=== PATIENT | female | born 1970 | race Caucasian/White ===

== ENCOUNTER 2017-11-23 15:52 | Emergency (ER) | payer OTHER ==
[2017-11-23 16:20] VITALS: BP 141/92; PULSE 72; TEMP 97.6; BMI 28.3
[2017-11-23] MEDS ORDERED: ONDANSETRON 4 MG/2 ML VIAL IVPUSH STA (16:41)
[2017-11-23] MEDS ORDERED: SODIUM CHLORIDE 1,000 ML IV STA ×2 (16:41→18:29)
--- NOTE | 2017-11-23 16:41 | PDOC ---
History of Present Illness - General History Source: Patient Exam Limitations: No Limitations - History of Present Illness Initial Comments: 11/23/17 17:27 The patient is a 47 year old female with a significant past medical history of breast CA s/p left mastectomy, seizure disorder, and bipolar disorder who presents to the ED with complaints of nausea, vomiting, and abdominal pain for 3 days. The patient reports an onset of generalized abdominal pain radiating to her back on Friday. She also reports multiple episodes of nausea and vomiting. Patient states her mouth is very dry after vomiting. Upon arrival to the ED, patient is requesting pain medication and is moving all over the bed. Denies fever or chills. Denies chest pain or shortness of breath. Denies dysuria or change in urinary output. Denies any other symptoms. <Janiya Wyatt - Last Filed: 11/23/17 17:27> <Breanne Arambula - Last Filed: 11/24/17 01:23> - General Chief Complaint: Nausea/Vomiting Stated Complaint: Nausea/Vomiting Time Seen by Provider: 11/23/17 16:24 Past History <Janiya Wyatt - Last Filed: 11/23/17 17:27> - Past Medical History Asthma: Yes Cancer: Yes (lt breast) COPD: No Psychiatric Problems: Yes (bipolar depression anxiety) - Suicide/Smoking/Psychosocial Hx Smoking History: Unknown if ever smoked Have you smoked in the past 12 months: No Information on smoking cessation initiated: No Hx Alcohol Use: No Drug/Substance Use Hx: No Substance Use Type: None <Breanne Arambula - Last Filed: 11/24/17 01:23> - Past Medical History Allergies/Adverse Reactions: Allergies Allergy/AdvReac Type Severity Reaction Status Date / Time haloperidol [From Haldol] Allergy Verified 11/23/17 16:20 trazodone Allergy Verified 11/23/17 16:20 Home Medications: Ambulatory Orders Fluconazole [Diflucan] 150 mg PO ONCE #1 tablet 11/23/17 Ondansetron [Zofran *Odt*] 8 mg SL BID PRN #10 od.tablet 11/23/17 Review of Systems - Review of Systems Able to Perform ROS?: Yes Comments:: 11/23/17 17:28 CONSTITUTIONAL: Absent: fever, chills, diaphoresis, generalized weakness, malaise, loss of appetite HEENT: Absent: rhinorrhea, nasal congestion, throat pain, throat swelling, difficulty swallowing, mouth swelling, ear pain, eye pain, visual Changes CARDIOVASCULAR: Absent: chest pain, syncope, palpitations, irregular heart rate, lightheadedness , peripheral edema RESPIRATORY: Absent: cough, shortness of breath, dyspnea with exertion, orthopnea, wheezing, stridor, hemoptysis GASTROINTESTINAL: + abdominal pain, nausea, vomiting Absent: abdominal distension, diarrhea, constipation, melena, hematochezia GENITOURINARY: Absent: dysuria, frequency, urgency, hesitancy, hematuria, flank pain, genital pain MUSCULOSKELETAL: Absent: myalgia, arthralgia, joint swelling SKIN: Absent: rash, itching, pallor HEMATOLOGIC/IMMUNOLOGIC: Absent: easy bleeding, easy bruising, lymphadenopathy, frequent infections ENDOCRINE: Absent: unexplained weight gain, unexplained weight loss, heat intolerance, cold intolerance NEUROLOGIC: Absent: headache, focal weakness or paresthesias, dizziness, unsteady gait, seizure, mental status changes, bladder or bowel incontinence PSYCHIATRIC: Absent: anxiety, depression, suicidal or homicidal ideation, hallucinations. All Other Systems: Reviewed and Negative <Janiya Wyatt - Last Filed: 11/23/17 17:27> *Physical Exam - Vital Signs Last Vital Signs Temp Pulse Resp BP Pulse Ox 97.6 F 72 22 141/92 98 11/23/17 16:14 11/23/17 16:14 11/23/17 16:14 11/23/17 16:14 11/23/17 16:14 - Physical Exam Comments: 11/23/17 17:28 GENERAL: Well developed, well nourished. Awake and alert. No acute distress. HEENT: + dry mucous membranes. Normocephalic, atraumatic. PERRLA, EOMI. No conjunctival pallor. Sclera are non- icteric. Oropharynx is clear. NECK: Supple. Full ROM. No JVD. Carotid pulses 2+ and symmetric, without bruits. No thyromegaly. NCo lymphadenopathy. CARDIOVASCULAR: Regular rate and rhythm. No murmurs, rubs, or gallops. Distal pulses are 2+ and symmetric. PULMONARY: No evidence of respiratory distress. Lungs clear to auscultation bilaterally. No wheezing, rales or rhonchi. ABDOMINAL: Soft. Non-tender. Non-distended. No rebound or guarding. No organomegaly. Normoactive bowel sounds. MUSCULOSKELETAL Normal range of motion at all joints. No bony deformities or tenderness. No CVA tenderness. EXTREMITIES: No cyanosis. No clubbing. No edema. No calf tenderness. SKIN: Warm and dry. Normal capillary refill. No rashes. No jaundice. NEUROLOGICAL: Alert, awake, appropriate. Cranial nerves 2-12 intact. No deficits to light touch and temperature in face, upper extremities and lower extremities. No motor deficits in the in face, upper extremities and lower extremities. Normoreflexic in the upper and lower extremities. Normal speech. Toes are down- going bilaterally. Gait is normal without ataxia. PSYCHIATRIC: Cooperative. Good eye contact. Appropriate mood and affect. <Janiya Wyatt - Last Filed: 11/23/17 17:27> - Vital Signs Last Vital Signs Temp Pulse Resp BP Pulse Ox 97.6 F 72 22 141/92 98 11/23/17 16:14 11/23/17 16:14 11/23/17 16:14 11/23/17 16:14 11/23/17 16:14 <Breanne Arambula - Last Filed: 11/24/17 01:23> ED Treatment Course - LABORATORY CBC & Chemistry Diagram: 11/23/17 16:43 11/23/17 16:43 - ADDITIONAL ORDERS Additional order review: 11/23/17 16:43 RBC 4.27 MCV 94.0 MCHC 34.1 RDW 13.7 MPV 7.6 Neutrophils % 70.9 Lymphocytes % 12.6 Monocytes % 15.8 H Eosinophils % 0.1 Basophils % 0.6 - Medications Given in the ED: ED Medications Discontinued Medications Generic Name Dose Route Start Last Admin Trade Name Freq PRN Reason Stop Dose Admin Ondansetron HCl 4 mg 11/23/17 16:41 11/23/17 17:06 Zofran Injection IVPUSH 11/23/17 16:42 4 mg ONCE STA Administration <Janiya Wyatt - Last Filed: 11/23/17 17:27> - LABORATORY CBC & Chemistry Diagram: 11/23/17 16:43 11/23/17 16:43 <Breanne Arambula - Last Filed: 11/24/17 01:23> Medical Decision Making - Medical Decision Making 11/23/17 18:14 47-year-old female presents with nausea and vomiting since Friday. She is very agitated because she wants pain medication Past medical history significant for breast cancer Past surgical history left mastectomy, liposuction. Patient has no fever., Pulse is 72. Patient has a benign abdominal exam Labs reviewed and her CBC is within normal limits, chemistries are essentially unremarkable with normal liver function tests, normal kidney function tests are normal. Electrolytes Tox screen positive for marijuana. Urinalysis is positive for yeast/wbc's, trace nitrate negative and leukocyte negative 11/23/17 19:39 p[t is still vomiting and I'll admit her to OBS med/syrg 11/23/17 20:06 Patient found inducing vomiting by sticking her finger down her throat. This changes my disposition 11/24/17 01:23 <Breanne Arambula - Last Filed: 11/24/17 01:23> *DC/Admit/Observation/Transfer - Attestations Scribe Attestion: 11/23/17 17:28 Documentation prepared by Janiya Wyatt, acting as medical insurance biller for Breanne Arambula MD <Janiya Wyatt - Last Filed: 11/23/17 17:27> <Breanne Arambula - Last Filed: 11/24/17 01:23> Diagnosis at time of Disposition: Gastritis Qualifiers: Gastritis type: unspecified gastritis Chronicity: acute Gastritis bleeding: without bleeding Qualified Code(s): K29.00 - Acute gastritis without bleeding - Discharge Dispostion Disposition: HOME Condition at time of disposition: Stable - Prescriptions Prescriptions: Fluconazole [Diflucan] 150 mg PO ONCE #1 tablet Ondansetron [Zofran *Odt*] 8 mg SL BID PRN #10 od.tablet PRN Reason: Nausea And/Or Vomiting - Patient Instructions Printed Discharge Instructions: DI for Gastritis Additional Instructions: please sweet pickle maker your medications at the pharmacy follow up with your doctor this week
[2017-11-23] MEDS ORDERED: ONDANSETRON 4 MG/2 ML VIAL ONE (16:58)
[2017-11-23 17:06] LABS: BASO % 0.6 % (0-2.0); EOS % 0.1 % (0-4.5); HEMATOCRIT 40.1 % (32.4-45.2); HEMOGLOBIN 13.7 GM/dL (10.7-15.3); LYMPH % 12.6 % (8-40); MCHC 34.1 g/dl (32.0-36.0); MEAN PLT VOLUME 7.6 fl (7.5-11.1); MONO % 15.8 % (3.8-10.2); NEUT % 70.9 % (42.8-82.8); PLATELET COUNT 276 K/MM3 (134-434); RBC 4.27 M/mm3 (3.60-5.2); RDW 13.7 % (11.6-15.6); WHITE BLOOD COUNT 5.7 K/mm3 (4.0-10.0)
[2017-11-23] MEDS ORDERED: METOCLOPRAMIDE HCL INJECTION 10 MG/2 ML VIAL IVPB STA (17:27)
[2017-11-23] MEDS ORDERED: METOCLOPRAMIDE HCL INJECTION 10 MG/2 ML VIAL ONE (17:28)
[2017-11-23 17:31] LABS: ALBUMIN 3.2 g/dl (3.4-5.0); ANION GAP 12 (8-16); BLOOD UREA NITROGEN 9 mg/dL (7-18); CALCIUM 8.7 mg/dL (8.5-10.1); CHLORIDE 104 mmol/L (98-107); CO2 23 mmol/L (21-32); CREATININE 0.5 mg/dL (0.55-1.02); GLUCOSE,RANDOM 107 mg/dL (74-106); LIPASE 61 U/L (73-393); SGPT/ALT 20 U/L (12-78); SODIUM 139 mmol/L (136-145)
[2017-11-23 17:32] LABS: ALK PHOS 48 U/L (45-117); BILIRUBIN,TOTAL 0.3 mg/dL (0.2-1.0); TOT PROT 7.4 g/dl (6.4-8.2)
[2017-11-23 17:34] LABS: POTASSIUM 3.9 mmol/L (3.5-5.1); SGOT/AST 29 U/L (15-37)
[2017-11-23 17:34] LABS: URINE APPEARANCE TURBID; URINE BILIRUBIN NEGATIVE (NEGATIVE); URINE BLOOD NEGATIVE (NEGATIVE); URINE COLOR DKYELLOW; URINE GLUCOSE (UA) NEGATIVE (NEGATIVE); URINE KETONE 2+ (NEGATIVE); URINE LEUK ESTERASE NEGATIVE (NEGATIVE); URINE NITRITE NEGATIVE (NEGATIVE)
[2017-11-23 17:39] LABS: URINE PROTEIN 1+ (NEGATIVE)
[2017-11-23 17:40] LABS: COCAINE, UR NEGATIVE ng/ml (CUTOFF=300); OPIATES, URI NEGATIVE ng/ml (CUTOFF=300); PHENCYCLIDINE,URINE NEGATIVE ng/ml (CUTOFF=25); URINE AMPHETAMINES NEGATIVE ng/ml (CUTOFF=500); URINE BARBITURATES NEGATIVE ng/ml (CUTOFF=200); URINE BENZODIAZEPINES NEGATIVE ng/ml (CUTOFF=200)
[2017-11-23 17:41] LABS: EPI CELLS RARE /HPF (FEW); METHADONE, UR NEGATIVE ng/ml (CUTOFF=300); URINE BACTERIA RARE /hpf (NONE SEEN); URINE MUCUS FEW; YEAST MANY
[2017-11-23] MEDS ORDERED: FLUCONAZOLE 100 MG TABLET (UD) ONE (18:28)
[2017-11-23] MEDS ORDERED: FAMOTIDINE 20 MG/50 ML IVPB 20 MG/50 ML MG IVPB ONE (18:28)
[2017-11-23] MEDS: FLUCONAZOLE 100 MG TABLET (UD) PO ONE ×2 (18:28→18:38)
[2017-11-23] MEDS ORDERED: FAMOTIDINE IV 20 MG/12 ML VIAL IVPUSH ONE (18:29)
[2017-11-23] MEDS ORDERED: FAMOTIDINE IV 20 MG/12 ML VIAL IVPUSH SCH (22:00)
== END 2017-11-23 20:28 | disposition home or self-care (01) ==
LOC: JER 15:52
PROC: 3E0337Z Introduction of Electrolytic and Water Balance Substance into Peripheral Vein, Percutaneous Approach (ICD-10-PCS; principal; 2017-11-23)
PROC: 3E033GC Introduction of Other Therapeutic Substance into Peripheral Vein, Percutaneous Approach (ICD-10-PCS; 2017-11-23)
PROC: 3E033NZ Introduction of Analgesics, Hypnotics, Sedatives into Peripheral Vein, Percutaneous Approach (ICD-10-PCS; 2017-11-23)
DX: K29.70 Gastritis, unspecified, without bleeding (principal); F31.9 Bipolar disorder, unspecified; Z86.69 Personal history of other diseases of the nervous system and sense organs; Z85.3 Personal history of malignant neoplasm of breast; Z90.12 Acquired absence of left breast and nipple
CPT/HCPCS: 36415; 80053; 80307; 81003; 81015; 83690; 85025; 99283-25

== ENCOUNTER 2019-05-07 22:50 | Emergency (ER) | payer OTHER ==
[2019-05-07 23:03] VITALS: TEMP 97.6; BMI 29.8
[2019-05-07] MEDS ORDERED: SODIUM CHLORIDE 0.9% 500 ML INFUS.BAG IV ONE (23:58)
--- NOTE | 2019-05-08 00:33 | PDOC ---
Documentation entered by Dottie El SCRIBE, acting as scribe for Bernice Gutiérrez MD. Bernice Gutiérrez MD: This documentation has been prepared by the Nikko wilcox Lincy, SCRIBE, under my direction and personally reviewed by me in its entirety. I confirm that the documentation accurately reflects all work, treatment, procedures, and medical decision making performed by me. History of Present Illness - General Chief Complaint: Pain, Acute Stated Complaint: ABDOMINAL PAIN Time Seen by Provider: 05/07/19 23:10 History Source: Patient Exam Limitations: No Limitations - History of Present Illness Initial Comments: 05/08/19 00:04 The patient is a 48-year-old female with a past medical history significant for Bipolar disorder, Breast CA s/p L. mastectomy and Stomach CA (radiation and chemotherapy for treatment) presents to the emergency department with multiple complaints. The patient presents with lower abdominal pain, thats been going on for a while, which worsened today. The patient reports the pain feels like punching it radiates to her flank region to the back. The patient reports additional complaint of difficulty urinating during the day times states she dribbles while voiding, however during the night time she voids 10-20 times. The patient reports additional complaints of nausea, x2 episodes of vomiting, decreased appetite, 60-70 pound unintentional weight loss in the last 3 months, night sweats, intermittent chills, numbness, tingling, and weakness. Allergies: haloperidol, trazodone Social history: Daily use of marijuana for pain. Daily tobacco use. The patient denies the use of alcohol. PCP: Last follow up was 2 years ago. Past History - Past Medical History Allergies/Adverse Reactions: Allergies Allergy/AdvReac Type Severity Reaction Status Date / Time haloperidol [From Haldol] Allergy Verified 05/07/19 23:00 trazodone Allergy Verified 05/07/19 23:00 Home Medications: Ambulatory Orders Budesonide/Formeterol Fumarate [SYMBICORT 160/4.5mcg -] 1 inh IH BID PRN Phenytoin Na Extended [Dilantin -] 1,500 mg PO BID 05/07/19 Quetiapine Fumarate [Seroquel] 300 mg PO HS 05/07/19 Cephalexin [Keflex] 500 mg PO TID #21 capsule 05/08/19 Asthma: Yes Cancer: Yes (lt breast) COPD: No Psychiatric Problems: Yes (bipolar depression anxiety) - Suicide/Smoking/Psychosocial Hx Smoking History: Unknown if ever smoked Have you smoked in the past 12 months: No Information on smoking cessation initiated: No Hx Alcohol Use: No Drug/Substance Use Hx: No Substance Use Type: None Review of Systems - Review of Systems Able to Perform ROS?: Yes Comments:: 05/08/19 00:04 GENERAL/CONSTITUTIONAL: No fever. +chills and night sweats. +weakness, decreased appetite. HEAD, EYES, EARS, NOSE AND THROAT: No change in vision. No ear pain or discharge. No sore throat. CARDIOVASCULAR: No chest pain or shortness of breath. RESPIRATORY: No cough, wheezing, or hemoptysis. GASTROINTESTINAL: +lower abdominal pain, nausea, vomiting. No diarrhea or constipation. GENITOURINARY: +difficulty urinating. No dysuria, frequency. MUSCULOSKELETAL: No joint or muscle swelling or pain. No neck or back pain. SKIN: No rash NEUROLOGIC: +numbness, tingling. No headache, vertigo, loss of consciousness. ENDOCRINE: No increased thirst. +weight loss. HEMATOLOGIC/LYMPHATIC: No anemia, easy bleeding, or history of blood clots. ALLERGIC/IMMUNOLOGIC: No hives or skin allergy. *Physical Exam - Vital Signs Last Vital Signs Temp Pulse Resp BP Pulse Ox 97.6 F 75 18 96/64 96 05/07/19 23:00 05/07/19 23:00 05/07/19 23:00 05/07/19 23:00 05/07/19 23:00 ED Treatment Course - LABORATORY CBC & Chemistry Diagram: 05/08/19 01:00 05/08/19 01:00 Medical Decision Making - Medical Decision Making 05/08/19 02:08 Pt has an elevated WBC count. UA is pending. Chem is normal. Dilantin level is subtherapeutic. 05/08/19 02:29 Pt has red orange urine. Likely UTI, as she had hysterectomy in the past. 05/08/19 03:41 Pt has UTI and she will be treated with a dose of IV abx and she will go home with keflex tid x 7 days *DC/Admit/Observation/Transfer Diagnosis at time of Disposition: UTI (urinary tract infection) - Discharge Dispostion Disposition: HOME Condition at time of disposition: Stable Decision to Admit order: No - Prescriptions Prescriptions: Cephalexin [Keflex] 500 mg PO TID #21 capsule - Referrals Referrals: David Aparicio [Primary Care Provider] - - Patient Instructions Printed Discharge Instructions: Urinary Tract Infection - Post Discharge Activity
[2019-05-08 01:21] LABS: BASO % 0.8 % (0-2.0); HEMOGLOBIN 13.3 GM/dL (10.7-15.3)
[2019-05-08 01:28] LABS: HEMATOCRIT 39.8 % (32.4-45.2); LYMPH % 24.9 % (8-40); MCH 31.1 pg (25.7-33.7); MCHC 33.3 g/dl (32.0-36.0); MEAN CELL VOLUME 93.5 fl (80-96); MEAN PLT VOLUME 7.8 fl (7.5-11.1); MONO % 9.4 % (3.8-10.2); NEUT % 63.9 % (42.8-82.8); PLATELET COUNT 293 K/MM3 (134-434); RBC 4.26 M/mm3 (3.60-5.2); RDW 13.3 % (11.6-15.6); WHITE BLOOD COUNT 13.8 K/mm3 (4.0-10.0)
[2019-05-08] MEDS ORDERED: PHENYTOIN NA EXTENDED 100 MG CAPSULE (FP) PO ONE (01:29)
[2019-05-08 01:33] LABS: ALBUMIN 3.3 g/dl (3.4-5.0); ALK PHOS 45 U/L (45-117); ANION GAP 6 MMOL/L (8-16); BILIRUBIN,TOTAL 0.2 mg/dL (0.2-1); CALCIUM 8.7 mg/dL (8.5-10.1); CHLORIDE 108 mmol/L (98-107); CO2 26 mmol/L (21-32); CREATININE 0.6 mg/dL (0.55-1.3); GLUCOSE,RANDOM 81 mg/dL (74-106); LIPASE 75 U/L (73-393); POTASSIUM 4.1 mmol/L (3.5-5.1); SGOT/AST 9 U/L (15-37); SGPT/ALT 10 U/L (13-61); SODIUM 140 mmol/L (136-145); TOT PROT 7.1 g/dl (6.4-8.2)
[2019-05-08] MEDS ORDERED: PHENYTOIN NA EXTENDED 100 MG CAPSULE (FP) ONE (01:35)
[2019-05-08 02:12] LABS: PH,URINE 6.5 (5.0-8.0); URINE APPEARANCE CLEAR; URINE BILIRUBIN NEGATIVE (NEGATIVE); URINE COLOR DK YELLOW; URINE GLUCOSE (UA) NEGATIVE (NEGATIVE); URINE KETONE NEGATIVE (NEGATIVE); URINE LEUK ESTERASE TRACE (NEGATIVE); URINE NITRITE POSITIVE (NEGATIVE); URINE PROTEIN NEGATIVE (NEGATIVE)
[2019-05-08] MEDS ORDERED: CEFTRIAXONE 1 GM in DEXTROSE 5%-WATER - 50 ML IVPB ONE (02:18)
[2019-05-08] MEDS ORDERED: CEFTRIAXONE 1 GM/50 ML BAG ONE (02:22)
[2019-05-08 02:47] VITALS: BP 100/56; PULSE 70
[2019-05-08 03:16] LABS: EPI CELLS 0.2 /HPF (0-5/HPF); HYALINE CASTS 0.73 /lpf (0-8); URINE BACTERIA 4.1 /hpf (NEGATIVE); URINE RBC 1.5 /hpf (0-4); URINE WBC 0.1 /hpf (0-5)
== END 2019-05-08 03:03 | disposition home or self-care (01) ==
LOC: JER 22:50
DX: N39.0 Urinary tract infection, site not specified (principal); F41.9 Anxiety disorder, unspecified; F31.9 Bipolar disorder, unspecified; Z85.3 Personal history of malignant neoplasm of breast; Z85.028 Personal history of other malignant neoplasm of stomach; Z90.12 Acquired absence of left breast and nipple
CPT/HCPCS: 36415; 80053; 80185; 81003; 82550; 83690; 84484; 85025; 87389; 96365; 99282-25

== ENCOUNTER 2019-11-16 16:43 | Inpatient (IN) | payer OTHER ==
[2019-11-16] MEDS ORDERED: SODIUM CHLORIDE 500 ML IV ONE (16:51)
[2019-11-16] MEDS ORDERED: ONDANSETRON 4 MG/2 ML VIAL IVPUSH ONE (16:51)
[2019-11-16] MEDS ORDERED: ONDANSETRON 4 MG/2 ML VIAL ONE (17:21)
--- NOTE | 2019-11-16 17:27 | PDOC ---
History of Present Illness - General Chief Complaint: Pain Stated Complaint: vomiting,abdominal pain,nausea Time Seen by Provider: 11/16/19 16:47 History Source: Patient, Old Records Exam Limitations: No Limitations - History of Present Illness Initial Comments: HPI: 49 y/o female presenting to [facility] complaining of diffuse abdominal pain described as constant and crampy with multiple episodes of nonbloody, nonbilious emesis. States she has abdominal pain and pain all over her body "everyday" for "a long time." Pain in the abdomen became worse today. Pt questions if it could be related to the chicken she ate for lunch. Attempted relief with Mylanta and Pepto Bismul, but was not able to keep the medications down. Denies fevers, chest pain, SOB, or burning sensation in the throat or metallic taste in mouth. Denies recent international travel, abx usage, or sick contacts. [facility] Registry: No search results Social Hx: - Uses marijuana daily for the pain Medical Hx: - Breast CA s/p left mastectomy at age 23 - Seizure disorder - Bipolar disorder Surgical Hx: - Hysterectomy at age 34 Review of Systems: 10 point review of systems completed. All systems negative except as noted above. Physical Examination: Vital signs and nursing notes reviewed. Constitutional- Nontoxic adult female in no acute distress. Found semi-fowlers on hospital bed. Initially observed thrashing in bed but stopped during interview. Appearing older than stated age. Head- Normocephalic. No obvious external signs of trauma. Neck- Supple, trachea is midline. Cardiovascular / Chest- Regular rate and regular rhythm. No murmur, rubs, clicks , or gallops. Peripheral pulses- radial pulses full. Respiratory- Breathing unlabored. Equal chest rise and fall. Clear to auscultation bilaterally. No stridor, no wheezing, no rhonchi. Gastrointestinal- abdomen is diffusely tender in all four quadrants with guarding and grimace. No pulsatile masses. No overlying skin lesions or obvious signs of trauma. Neuro- Alert and oriented x4. Moving all four extremities spontaneously. Skin- [place], warm, and dry. Psych- Affect- appropriate. Mood- normal. Speech was non-labored, non- pressured. Past History - Past Medical History Allergies/Adverse Reactions: Allergies Allergy/AdvReac Type Severity Reaction Status Date / Time haloperidol [From Haldol] Allergy Verified 11/16/19 16:44 trazodone Allergy Verified 11/16/19 16:44 peanut AdvReac Severe Difficulty Verified 11/16/19 16:45 Breathing Home Medications: Ambulatory Orders Quetiapine Fumarate [Seroquel] 300 mg PO HS 05/07/19 Albuterol Sulfate Inhaler - [Ventolin Hfa Inhaler -] 1 - 2 inh PO PRN PRN Divalproex [Depakote -] 1,000 mg PO HS 11/16/19 Divalproex [Depakote -] 500 mg PO AM 11/16/19 Sertraline HCl [Zoloft] 100 mg PO HS 11/16/19 Asthma: Yes Cancer: Yes (lt breast) COPD: No Psychiatric Problems: Yes (bipolar depression anxiety) Other medical history: NO LEFT ARM USE - Immunization History Td Vaccination: Yes TDAP Vaccination: Yes Immunization Up to Date: Yes - Psycho Social/Smoking Cessation Hx Smoking History: Current every day smoker Have you smoked in the past 12 months: No Number of Cigarettes Smoked Daily: 5 Information on smoking cessation initiated: Yes Hx Alcohol Use: No Drug/Substance Use Hx: Yes (Marijuana) Substance Use Type: None *Physical Exam - Vital Signs Last Vital Signs Temp Pulse Resp BP Pulse Ox 97.8 F 65 18 115/78 98 11/16/19 16:44 11/16/19 16:44 11/16/19 16:44 11/16/19 16:44 11/16/19 16:44 ED Treatment Course - LABORATORY CBC & Chemistry Diagram: 11/16/19 17:10 11/16/19 17:10 Discharge - Discharge Information Condition: Stable - Follow up/Referral - Patient Discharge Instructions - Post Discharge Activity
[2019-11-16 17:30] LABS: BASO % 4.3 % (0-2.0); EOS % 0.9 % (0-4.5); HEMATOCRIT 41.1 % (32.4-45.2); LYMPH % 26.6 % (8-40); MCH 31.6 pg (25.7-33.7); MCHC 34.2 g/dl (32.0-36.0); MEAN CELL VOLUME 92.5 fl (80-96); MEAN PLT VOLUME 7.8 fl (7.5-11.1); MONO % 10.1 % (3.8-10.2); NEUT % 58.1 % (42.8-82.8); PLATELET COUNT 391 K/MM3 (134-434); RBC 4.44 M/mm3 (3.60-5.2); RDW 13.2 % (11.6-15.6); WHITE BLOOD COUNT 13.1 K/mm3 (4.0-10.8)
[2019-11-16] MEDS ORDERED: ACETAMINOPHEN 1000 MG/100 ML VIAL (NON FORMULARY) IVPB ONE (17:31)
[2019-11-16] MEDS ORDERED: LACTATED RINGERS SOLUTION 1000 ML INFUS.BAG IV ONE (17:31)
[2019-11-16] MEDS ORDERED: FAMOTIDINE 20 MG/50 ML IVPB 20 MG/50 ML MG IVPB ONE ×2 (17:32→17:35)
[2019-11-16] MEDS ORDERED: ACETAMINOPHEN INJECTION 100 ML IVPB ONE (17:35)
[2019-11-16 17:36] LABS: MAGNESIUM 2.4 mg/dL (1.8-2.4)
[2019-11-16 17:39] LABS: ALBUMIN 3.9 g/dl (3.4-5.0); BILIRUBIN,TOTAL 0.7 mg/dl (0.2-1); CALCIUM 9.3 mg/dl (8.5-10); CREATININE 0.6 mg/dl (0.55-1.3); TOT PROT 7.3 g/dl (6.4-8.2)
--- NOTE | 2019-11-16 18:05 | PDOC ---
Attending Attestation - Resident Resident Name: Jorge Moore - ED Attending Attestation I have performed the following: I have examined & evaluated the patient, The case was reviewed & discussed with the resident, I agree w/resident's findings & plan - HPI HPI: 11/16/19 17:56 49-year-old female with history of breast CA many years ago status post resection, bipolar/schizophrenia, chronic pain syndrome treated with marijuana almost daily presents now with abdominal pain and vomiting for 1 to 2 days. Patient reports chronic vomiting syndrome, never worked up or diagnosed, reportedly never had endoscopy or gastric emptying study, but states she had "stomach cancer" that was surgically resected through a horizontal pelvic incision. Today, no recent changes in meds or diet, reporting upper belly pain with nonbloody nonbilious emesis, no fevers or chills. Similar to past episodes, has had 2 prior visits for same in the past resolved after medications. - Physicial Exam PE: 11/16/19 17:59 Vital signs stable Initially writhing in stretcher, now comfortable and smiling and conversant No jaundice or pallor, moist mucosa Heart is regular, lungs are clear Left breast incisional scar, left pelvic horizontal incisional scar. Abdomen is soft/nondistended, tender with some guarding in the right upper quadrant/ epigastric area, no rebound. Bowel sounds normal, no CVA tenderness. - Medical Decision Making 11/16/19 18:00 49-year-old female with acute on chronic vomiting/epigastric pain, similar visits in the past. Exam localizes to epigastric/right upper quadrant, raising some concern for biliary colic versus pancreatitis, though gastroparesis seems to be most likely diagnosis given the chronicity and history of almost daily marijuana use. + abd surgical history but + rectal out without distension/ diffuse tenderness, so not consistent with SBO. not consistent with cardiopulmonary process. labs, ua ekg, cxr ivf, antacid, pain control, anti-emetic ctap given no h/o imaging here reassess, GI f/u if above wnl and sxs improve. 11/16/19 18:56 wbc 13, LFT and lipase normal, trop negative. ua pending, ctap pending. pt feels better, no further vomiting. Heart Score/ECG Review #1 ECG reviewed & interpreted by me at: 17:32 General ECG Interpretation: Sinus Rhythm, Normal Rate (69), Normal Intervals ( qtc 411), No acute ischemic changes
[2019-11-16 19:01] LABS: PH,URINE 8.5 (4.5-8); URINE APPEARANCE SL CLOUDY; URINE BILIRUBIN NEGATIVE (NEGATIVE); URINE COLOR YELLOW; URINE GLUCOSE (UA) NEGATIVE (NEGATIVE); URINE KETONE NEGATIVE (NEGATIVE); URINE LEUK ESTERASE NEGATIVE (NEGATIVE); URINE NITRITE NEGATIVE (NEGATIVE); URINE PROTEIN NEGATIVE (NEGATIVE); URINE UROBILINOGEN 0.2 (0.2-1.0)
[2019-11-16] MEDS ORDERED: KETOROLAC TROMETHAMINE 30 MG/1 ML VIAL IVPUSH ONE (20:21)
--- NOTE | 2019-11-16 20:22 | PDOC ---
*Physical Exam - Vital Signs Last Vital Signs Temp Pulse Resp BP Pulse Ox 97.8 F 65 18 115/78 98 11/16/19 16:44 11/16/19 16:44 11/16/19 16:44 11/16/19 16:44 11/16/19 16:44 ED Treatment Course - LABORATORY CBC & Chemistry Diagram: 11/16/19 17:10 11/16/19 17:10 - ADDITIONAL ORDERS Additional order review: Laboratory Results 11/16/19 11/16/19 11/16/19 17:10 17:10 17:10 Sodium 136 Potassium 4.0 Chloride 107 Carbon Dioxide 24 Anion Gap 5 L BUN 13.0 Creatinine 0.6 Est GFR (CKD-EPI)AfAm 123.18 Est GFR (CKD-EPI)NonAf 106.28 Random Glucose 110 H Calcium 9.3 Magnesium 2.4 Total Bilirubin 0.7 AST 16 ALT 10 L Alkaline Phosphatase 45 Creatine Kinase 70 Troponin I < 0.03 Total Protein 7.3 Albumin 3.9 Lipase 60 L Urine Color Urine Appearance Urine pH Ur Specific [place] Urine Protein Urine Glucose (UA) Urine Ketones Urine Blood Urine Nitrite Urine Bilirubin Urine Urobilinogen Ur Leukocyte Esterase 11/16/19 17:00 Sodium Potassium Chloride Carbon Dioxide Anion Gap BUN Creatinine Est GFR (CKD-EPI)AfAm Est GFR (CKD-EPI)NonAf Random Glucose Calcium Magnesium Total Bilirubin AST ALT Alkaline Phosphatase Creatine Kinase Troponin I Total Protein Albumin Lipase Urine Color Yellow Urine Appearance Sl cloudy Urine pH 8.5 H Ur Specific [place] 1.020 Urine Protein Negative Urine Glucose (UA) Negative Urine Ketones Negative Urine Blood Negative Urine Nitrite Negative Urine Bilirubin Negative Urine Urobilinogen 0.2 Ur Leukocyte Esterase Negative 11/16/19 17:10 RBC 4.44 MCV 92.5 MCHC 34.2 RDW 13.2 MPV 7.8 Neutrophils % 58.1 Lymphocytes % 26.6 Monocytes % 10.1 Eosinophils % 0.9 Basophils % 4.3 H - Medications Given in the ED: ED Medications Discontinued Medications Generic Name Dose Route Start Last Admin Trade Name Freq PRN Reason Stop Dose Admin Acetaminophen 1,000 mg 11/16/19 17:31 11/16/19 17:41 Ofirmev Injection - IVPB 11/16/19 17:32 1,000 mg ONCE ONE Administration Sodium Chloride 500 mls @ 500 mls/hr 11/16/19 16:51 11/16/19 17:34 Normal Saline - IV 11/16/19 17:50 Not Given ONCE ONE Famotidine/Sodium Chloride 20 mg in 50 mls @ 100 mls/hr 11/16/19 17:32 17:41 Pepcid 20 Mg Premixed Ivpb - IVPB 11/16/19 18:01 100 mls/hr ONCE ONE Administration Lactated Ringer's 1,000 ml 11/16/19 17:31 11/16/19 17:33 Lactated Ringers Solution IV 11/16/19 17:32 1,000 ml ONCE ONE Administration Ondansetron HCl 4 mg 11/16/19 16:51 11/16/19 17:33 Zofran Injection IVPUSH 11/16/19 16:52 4 mg ONCE ONE Administration Medical Decision Making - Medical Decision Making Care of this patient received from Dr. Escoto. Abdominal/pelvic CT performed. Impression from Dr. Menchaca of the radiology staff: Nonspecific mild to moderate gallbladder over distention seen. Additional evaluation utilizing US suggested 11/16/19 22:04 Gallbladder ultrasound performed. Impression by Dr. Menchaca of the radiology staff: No definitive sonographic evidence of cholelithiasis or pericholecystic fluid. However, findings are noted with gallbladder distention (mild to moderate) and borderline gallbladder wall thickness. There is a small amount of inspissated bile/sludge within the gallbladder lumen. medical technologist reports a positive sonographic Ott sign. These findings are suggestive of acute cholecystitis . Additional imaging evaluation utilizing MRI /MRCP or HIDA scan may be considered. No definitive biliary tract dilatation Because of the patient's ongoing pain, right upper quadrant tenderness and imaging studies equivocal for cholecystitis, the patient will be treated for presumed acute cholecystitis and further imaging pursued. Patient's PMD does not admit here and [facility] hospitalist service contacted. Patient received Rocephin 1 g IV. Case discussed with MELVIN Odom and patient admitted, Dr Cisneros service. Discharge - Discharge Information Problems reviewed: Yes Clinical Impression/Diagnosis: Acute cholecystitis Condition: Stable - Admission Yes - Follow up/Referral - Patient Discharge Instructions - Post Discharge Activity
[2019-11-16] MEDS ORDERED: KETOROLAC TROMETHAMINE 30 MG/1 ML VIAL ONE (20:27)
[2019-11-16] MEDS ORDERED: CEFTRIAXONE 1 GM in DEXTROSE 5%-WATER - 50 ML IVPB ONE (22:14)
[2019-11-16] MEDS ORDERED: cefTRIAXone SODIUM 1 GM VIAL ONE (22:20)
[2019-11-16] MEDS ORDERED: ONDANSETRON 4 MG/2 ML VIAL IVPUSH PRN (23:00)
[2019-11-17 00:35] VITALS: BMI 22.1
[2019-11-17] MEDS: DIVALPROEX SODIUM 500 MG TABLET E.C. PO SCH ×3 (00:39→21:33)
[2019-11-17] MEDS: SERTRALINE HCL 50 MG TABLET (FP) PO SCH ×2 (00:39→21:33)
[2019-11-17] MEDS: LACTATED RINGERS SOLUTION 1,000 ML IV SCH (00:40)
[2019-11-17] MEDS: QUEtiapine FUMARATE 100 MG TABLET (FP) PO SCH ×2 (00:40→21:34)
[2019-11-17] MEDS ORDERED: ACETAMINOPHEN 1000 MG/100 ML VIAL (NON FORMULARY) IVPB PRN (01:20)
[2019-11-17 08:09] LABS: BASO % 0.4 % (0-2.0); EOS % 1.3 % (0-4.5); HEMATOCRIT 37.4 % (32.4-45.2); HEMOGLOBIN 12.4 GM/dl (10.7-15.3); LYMPH % 34.1 % (8-40); MCH 30.7 pg (25.7-33.7); MEAN CELL VOLUME 92.9 fl (80-96); MEAN PLT VOLUME 7.7 fl (7.5-11.1); MONO % 9.1 % (3.8-10.2); NEUT % 55.1 % (42.8-82.8); PLATELET COUNT 312 K/MM3 (134-434); RBC 4.02 M/mm3 (3.60-5.2); RDW 13.1 % (11.6-15.6); WHITE BLOOD COUNT 8.4 K/mm3 (4.0-10.8)
[2019-11-17 08:19] LABS: ALBUMIN 3.2 g/dl (3.4-5.0); BILIRUBIN,TOTAL 0.5 mg/dl (0.2-1); CALCIUM 8.8 mg/dl (8.5-10); CREATININE 0.6 mg/dl (0.55-1.3); POTASSIUM 3.9 mmol/L (3.5-5.1); TOT PROT 6.2 g/dl (6.4-8.2)
--- NOTE | 2019-11-17 09:36 | PN ---
Progress Note (short form) - Note Progress Note: Patient seen and consult dictated. Patient with 1 day of diffuse abdominal pain along with 1+ year hx of overall body pains. Has been followed for the latter in her Medical clinic. Admitted with acute abdominal pains with normal LFTs, slight leukocytosis and both CT and sono showing no evidence of gallstones or hepatobiliary disease. No fever, chills, diarrhea. Has hx of chronic constipation (1 BM q 3-4 days) WBC improved today and patient feels better with some decrease in her abdominal c/o; states she is hungry and wants to eat (still has her underlying body aches) Suspect acute gastroenteritis ?viral - symptoms improving. Would advance diet and activity Chronic constipation - ?use Miralax daily or QOD Chronic body pains (rib cage, legs, fingernails, abdomen, back - ?underlying myalgia/fibromyalgia); outpatient workup ?Rheumatology evaluation Can discharge home if clinically improved. No further GI workup at this time if tolerates diet.
--- NOTE | 2019-11-17 11:13 | EKG ---
Test Reason : Blood Pressure : / mmHG Vent. Rate : 069 BPM Atrial Rate : 069 BPM P-R Int : 130 ms QRS Dur : 078 ms QT Int : 384 ms P-R-T Axes : 053 049 040 degrees QTc Int : 411 ms NORMAL SINUS RHYTHM NORMAL ECG WHEN COMPARED WITH ECG OF 27-JAN-2010 15:01, NO SIGNIFICANT CHANGE WAS FOUND Confirmed by ANDRAE GROVES MD ([id number]) on 11/17/2019 11:12:31 AM Referred By: SALO VASQUEZ Confirmed By:ANDRAE GROVES MD
--- NOTE | 2019-11-17 13:04 | CONS ---
DATE OF CONSULTATION: 11/17/2019 REASON FOR CONSULTATION: Asked to evaluate this 49-year-old, female admitted via the emergency room last night with diffuse abdominal pain. HISTORY OF PRESENT ILLNESS: The patient is a 49-year-old, female with a 1-plus-year history of abdominal pain and body pains throughout her entire body. She states that the pains around her body can be in her ribcage, legs, back, stomach or even in her fingernails. She states that the pain that she presented to the emergency room was more of an acute onset and more in the abdomen on the right side more than the left. There was no associated fever, chills, diarrhea or vomiting. The patient was seen in the emergency room. Her blood work at admission included a white count of 13.1 with a hematocrit of 41.1. Her chemistries were unremarkable, including normal liver chemistries and a normal serum lipase level. Her CAT scan of the abdomen and sonogram showed no evidence of acute hepatobiliary disease. The patient's hospital course is notable for an improvement in her white count, today, to 8.4. She has had no fever or chills and remains afebrile with a temperature of 98.1. She states that today she feels better, although she still has some mild abdominal pain, in the background of diffuse body aches and pains. She states she is currently hungry. The patient also has a history of chronic constipation with 1-2 bowel movements per week on average. PHYSICAL EXAMINATION: General: On exam, she is a well-developed, well-nourished female, alert, and lying in bed comfortably. Abdomen: She has a soft abdomen with normoactive bowel sounds and nonspecific abdominal pain to pressure. Her abdomen is soft. Musculoskeletal: She also has similar pains with pressure on her ribcage, arms, and legs. Patient with likely two separate problems; the first being an acute gastroenteritis, which appears to be improving. Patient has normoactive bowel sounds, a negative CAT scan/sonogram, and an improved white count to normal. Will begin patient on a p.o. diet and follow clinically. The second problem is diffuse abdominal back, body pains, which may represent an underlying rheumatologic disorder or fibromyalgia. The patient does have a history of bipolar disorder and some of her complaints could be of a psychological nature. The latter problem of her diffuse body aches and pains can be evaluated as an outpatient. Will follow as needed without any further GI studies or recommendations suggested presently. RITA CABRAL M.D. [id number]
[2019-11-17] MEDS ORDERED: ONDANSETRON 4 MG/2 ML VIAL IVPUSH PRN (14:37)
[2019-11-17] MEDS ORDERED: VANCOMYCIN 1 GM in D5W (PRE-DOCKED) 1,000 MG/250 ML IVPB ONE (18:35)
--- NOTE | 2019-11-17 22:57 | HP ---
Documentation entered by Dorene Singleton SCRIBE, acting as scribe for Dory Plascencia NP. CHIEF COMPLAINT: RUQ pain [facility] HISTORY OF PRESENT ILLNESS: 49 year-old female with a PMH significant for breast cancer s/p left mastectomy (remote), seizure disorder (last seizure 1 year ago) bipolar/schizophrenia, and chronic pain. Presented to the ED for evaluation of abdominal pain associated with nausea and one episode of vomiting. Patient suffers from chronic, "full body" pain, but this abdominal pain is distinct, started about 24 hours ago, and waxes and wanes in intensity. Patient states that for some months she has been experiencing nausea after eating. Patient also reports a painful pimple in her inner left thigh. ER course was notable for: (1) WBC 8.4 (<--13.1), afebrile (2) LFTs normal, lipase normal Recent Travel: None reported PAST MEDICAL HISTORY: Breast cancer Bipolar/Schizophrenia Seizure disorder Chronic pain PAST SURGICAL HISTORY: Left mastectomy age 23 Hysterectomy age 34 Liposuction Social History: Patient lives in [place] with her and is unemployed. Smoking: Current everyday smoker. Alcohol: Denies EtoH use Drugs: Occasional marijuana use Family History: Mother of Breast Cancer at age 56 Father is currently 74 Allergies haloperidol [From Haldol] Allergy (Verified 11/16/19 16:44) trazodone Allergy (Verified 11/16/19 16:44) peanut Adverse Reaction (Severe, Verified 11/16/19 16:45) Difficulty Breathing anaphylactic HOME MEDICATIONS: Home Medications Medication Instructions Recorded Quetiapine Fumarate [Seroquel] 300 mg PO HS 05/07/19 Albuterol Sulfate Inhaler - 1 - 2 inh PO PRN PRN 11/16/19 [Ventolin Hfa Inhaler -] Divalproex [Depakote -] 1,000 mg PO HS 11/16/19 Divalproex [Depakote -] 500 mg PO AM 11/16/19 Sertraline HCl [Zoloft] 100 mg PO HS 11/16/19 REVIEW OF SYSTEMS CONSTITUTIONAL: Absent: fever, chills, diaphoresis, generalized weakness, malaise, loss of appetite, weight change HEENT: Absent: rhinorrhea, nasal congestion, throat pain, throat swelling, difficulty swallowing, mouth swelling, ear pain, eye pain, visual changes CARDIOVASCULAR: Absent: chest pain, syncope, palpitations, irregular heart rate, lightheadedness , peripheral edema RESPIRATORY: Absent: cough, shortness of breath, dyspnea with exertion, orthopnea, wheezing, stridor, hemoptysis GASTROINTESTINAL:+RUQ pain +nausea Absent: abdominal pain, abdominal distension, vomiting, diarrhea, constipation, melena, hematochezia GENITOURINARY: Absent: dysuria, frequency, urgency, hesitancy, hematuria, flank pain, genital pain MUSCULOSKELETAL: Absent: myalgia, arthralgia, joint swelling, back pain, neck pain SKIN: Absent: rash, itching, pallor HEMATOLOGIC/IMMUNOLOGIC: Absent: easy bleeding, easy bruising, lymphadenopathy, frequent infections ENDOCRINE: Absent: unexplained weight gain, unexplained weight loss, heat intolerance, cold intolerance NEUROLOGIC: Absent: headache, focal weakness or paresthesias, dizziness, unsteady gait, seizure, mental status changes, bladder or bowel incontinence PSYCHIATRIC: Absent: anxiety, depression, suicidal or homicidal ideation, hallucinations. PHYSICAL EXAMINATION Vital Signs - 24 hr 11/16/19 11/17/19 11/17/19 16:44 00:11 02:05 Temperature 97.8 F 98.1 F 98.1 F Pulse Rate 65 76 69 Respiratory 18 18 19 Rate Blood Pressure 115/78 121/80 96/52 L O2 Sat by Pulse 98 96 95 Oximetry (%) 11/17/19 06:00 Temperature 98.1 F Pulse Rate 65 Respiratory 20 Rate Blood Pressure 123/78 O2 Sat by Pulse 98 Oximetry (%) GENERAL: Awake, alert, and fully oriented, in no acute distress. HEAD: Normal with no signs of trauma. EYES: Pupils equal, round and reactive to light, extraocular movements intact, sclera anicteric, conjunctiva clear. EARS, NOSE, THROAT:+poor dentition, missing teeth, no obvious abscesses. LUNGS: Breath sounds equal, clear to auscultation bilaterally. No wheezes, and no crackles. No accessory muscle use. HEART: Regular rate and rhythm, normal S1 and S2 ABDOMEN:+diffusely tender more pronounced RUQ. UPPER EXTREMITIES: 2+ pulses, warm, well-perfused. No cyanosis. No clubbing. No peripheral edema. LOWER EXTREMITIES: 2+ pulses, warm, well-perfused. No calf tenderness. No peripheral edema. NEUROLOGICAL: Cranial nerves II-XII intact. Normal speech. Normal gait. PSYCHIATRIC: Cooperative. Good eye contact. Appropriate mood and affect. SKIN: small pustular lesion left inner thigh, tender Laboratory Results - last 24 hr 11/16/19 11/16/19 11/16/19 17:00 17:10 17:10 WBC RBC Hgb Hct MCV MCH MCHC RDW Plt Count MPV Absolute Neuts (auto) Neutrophils % Lymphocytes % Monocytes % Eosinophils % Basophils % Sodium 136 Potassium 4.0 Chloride 107 Carbon Dioxide 24 Anion Gap 5 L BUN 13.0 Creatinine 0.6 Est GFR (CKD-EPI)AfAm 123.18 Est GFR (CKD-EPI)NonAf 106.28 Random Glucose 110 H Calcium 9.3 Magnesium Total Bilirubin 0.7 AST 16 ALT 10 L Alkaline Phosphatase 45 Creatine Kinase 70 Troponin I < 0.03 Total Protein 7.3 Albumin 3.9 Lipase Urine Color Yellow Urine Appearance Sl cloudy Urine pH 8.5 H Ur Specific Bells 1.020 Urine Protein Negative Urine Glucose (UA) Negative Urine Ketones Negative Urine Blood Negative Urine Nitrite Negative Urine Bilirubin Negative Urine Urobilinogen 0.2 Ur Leukocyte Esterase Negative 11/16/19 11/16/19 17:10 17:10 WBC 13.1 H RBC 4.44 Hgb 14.0 Hct 41.1 MCV 92.5 MCH 31.6 MCHC 34.2 RDW 13.2 Plt Count 391 MPV 7.8 Absolute Neuts (auto) 7.6 Neutrophils % 58.1 Lymphocytes % 26.6 Monocytes % 10.1 Eosinophils % 0.9 Basophils % 4.3 H Sodium Potassium Chloride Carbon Dioxide Anion Gap BUN Creatinine Est GFR (CKD-EPI)AfAm Est GFR (CKD-EPI)NonAf Random Glucose Calcium Magnesium 2.4 Total Bilirubin AST ALT Alkaline Phosphatase Creatine Kinase Troponin I Total Protein Albumin Lipase 60 L Urine Color Urine Appearance Urine pH Ur Specific Bells Urine Protein Urine Glucose (UA) Urine Ketones Urine Blood Urine Nitrite Urine Bilirubin Urine Urobilinogen Ur Leukocyte Esterase ASSESSMENT/PLAN: 49 year-old female with a PMH significant for breast cancer s/p left mastectomy (remote), seizure disorder (last seizure 1 year ago) bipolar/schizophrenia, and chronic pain. Admitted for suspected acute cholecystitis. Abdominal pain r/o Acute Cholecystitis --US suggestive of acute cholecystitis, radiology recommends further imaging --afebrile, leukocytosis has resolved; observe off antibiotics --HIDA scan in am --NPO Abscess left inner thigh --pus filled lesion, wound culture collected and sent --Vanc x 1 dose --if no indication for IV antibiotics for cholecystitis, start PO meds tomorrow Breast cancer --stable Seizure disorder --stable --continue depakote Bipolar disorder Schizophrenia --continue sertraline, seroquel FEN Fluids: LR @ 100mL/hr Electrolytes: replete as indicated Nutrition: NPO DVT prophylaxis: hold chemical prophylaxis due to possible surgical intervention ; SCDs, oob, ambulation Dispo: continues to require inpatient care. Full code. Visit type - Emergency Visit Emergency Visit: Yes ED Registration Date: 11/16/19 Care time: The patient presented to the Emergency Department on the above date and was hospitalized for further evaluation of their emergent condition. - New Patient This patient is new to me today: Yes Date on this admission: 11/17/19 - Critical Care Critical Care patient: No Dory Plascencia, GRAPHIC ILLUSTRATOR: This documentation has been prepared by the Mani wilcox Maria, SCRIBE, under my direction and personally reviewed by me in its entirety. I confirm that the documentation accurately reflects all work, treatment, procedures, and medical decision making performed by me.
[2019-11-18] MEDS: DIVALPROEX SODIUM 500 MG TABLET E.C. PO SCH ×2 (07:25→21:37)
[2019-11-18 08:09] LABS: BASO % 0.3 % (0-2.0); EOS % 0.3 % (0-4.5); HEMATOCRIT 39.9 % (32.4-45.2); HEMOGLOBIN 13.4 GM/dl (10.7-15.3); LYMPH % 24.3 % (8-40); MCHC 33.7 g/dl (32.0-36.0); MEAN CELL VOLUME 92.1 fl (80-96); MEAN PLT VOLUME 7.6 fl (7.5-11.1); MONO % 8.9 % (3.8-10.2); NEUT % 66.2 % (42.8-82.8); PLATELET COUNT 362 K/MM3 (134-434); RBC 4.33 M/mm3 (3.60-5.2); RDW 12.7 % (11.6-15.6); WHITE BLOOD COUNT 12.5 K/mm3 (4.0-10.8)
[2019-11-18 08:37] LABS: ALBUMIN 3.4 g/dl (3.4-5.0); BILIRUBIN,TOTAL 0.7 mg/dl (0.2-1); CREATININE 0.5 mg/dl (0.55-1.3); MAGNESIUM 1.7 mg/dL (1.8-2.4); POTASSIUM 3.8 mmol/L (3.5-5.1); TOT PROT 6.6 g/dl (6.4-8.2)
[2019-11-18] MEDS ORDERED: MAGNESIUM SULF 50% (8.12 MEQ/2 ML-1 GM VIAL) IVPB ONE (08:50)
[2019-11-18] MEDS ORDERED: MAGNESIUM 1GM/D5W - 1 GM/100 ML IVPB IVPB ONE (09:00)
--- NOTE | 2019-11-18 11:32 | PN ---
Progress Note (short form) - Note Progress Note: surgery hida appear negative at 15 minutes. no stones on u/s or CT. no suspicion for choleycstitis by gi. if hida officially read as negative then no surgical intervention.
[2019-11-18] MEDS: ONDANSETRON *ODT* 4 MG TABLET SL PRN (11:54)
--- NOTE | 2019-11-18 16:35 | CONS ---
DATE OF CONSULTATION: 11/18/2019 REASON FOR CONSULTATION: Rule out acute cholecystitis. This is a consultation at the request of the hospitalist service. BRIEF HISTORY: This is a 49-year-old female with psychiatric disorder who presented to [facility] with abdominal pain, nausea, vomiting. She states she has had pain for over a year over her entire body. She was seen by the GI service this diameter who already feels that she has an enteritis and that she does not have gallbladder problems. She had an ultrasound done of her gallbladder, which showed no stones, no thickening, no fluid. She had a CAT scan done of her abdomen and pelvis, which was unremarkable. She had an ultrasound done, which showed possible sludge but no stones in the gallbladder. It was distended. There was no thickening noted. Today she had a HIDA scan, which showed filling of her gallbladder in 15 minutes; however, the radiologist figured that this might be a partial obstruction because the gallbladder did not completely fill. The request was made for surgical evaluation. PAST MEDICAL HISTORY: Significant for schizophrenia, bipolar, chronic pain, seizure disorder, and breast cancer. PAST SURGICAL HISTORY: Includes a left mastectomy, a reconstructed flap, abdominoplasty, and hysterectomy. SOCIAL HISTORY: Positive for tobacco. Negative for alcohol. FAMILY HISTORY: Significant for mother with breast cancer. ALLERGIES: HALDOL, TRAZODONE, and PEANUTS. HOME MEDICATIONS: Include Seroquel, Depakote, and Zoloft. REVIEW OF SYSTEMS: General: Denies fatigue or malaise. Cardiac: Denies chest pain or palpitations. Respiratory: Denies shortness of breath or wheeze. Gastrointestinal: Currently no nausea or vomiting. Admits to some pain in her abdomen but also throughout her entire body. Genitourinary: Denies dysuria. Musculoskeletal: Denies joint pain. Psychiatric: Denies anxiety, depression, or hearing voices. PHYSICAL EXAMINATION: General: This is a well-developed, well-nourished 49-year-old female in no distress. Vital Signs: She is afebrile. Her vital signs are stable. HEENT: Her head is normocephalic. Sclerae anicteric. Neck: Supple. Chest: Clear. Abdomen: Soft. She has mild abdominal tenderness on the right side in the right upper as well as right lower. Extremities: Trace edema. DIAGNOSTIC DATA: On review of her laboratory, her white blood cell count is 12.5. There is no shift. Her chemistries are unremarkable with normal liver function tests. Lipase is not elevated. Urinalysis is unremarkable. Review of her imaging, her ultrasound shows possible sludge, borderline thickening. No pericholecystic fluid, no stones. Her CAT scan shows distention of the gallbladder, possible fluid. No thickening, no inflammatory changes, no stones. Her HIDA shows partial filling of the gallbladder in 15 minutes. ASSESSMENT: A 49-year-old female with chronic pain syndrome, psychiatric disorder. Been evaluated by gastrointestinal service. [place] to have enteritis. She has some right-sided abdominal pain in addition to pain throughout her entire body. Her imaging modalities have very weak findings for cholecystitis. Acalculous cholecystitis is extremely rare in a patient who comes from the community. It is also rare to have acalculous cholecystitis in a HIDA that fills after 15 minutes. RECOMMENDATIONS: At this point, I have low suspicion for cholecystectomy and would not recommend surgery, although there is likely another acute event going on. Recommend further management by the GI service. I would not start antibiotics for cholecystitis as I do not think she has that. Obviously, if her findings change or symptoms localize, could likely repeat the CAT scan to see if inflammatory changes have developed, but at this point, I agree with Dr. Sewell that this is most likely enteritis. DO JANE [id number]
[2019-11-18] MEDS: SERTRALINE HCL 50 MG TABLET (FP) PO SCH (21:37)
[2019-11-18] MEDS: QUEtiapine FUMARATE 100 MG TABLET (FP) PO SCH (21:38)
[2019-11-19] MEDS: ONDANSETRON *ODT* 4 MG TABLET SL PRN ×2 (01:45→09:35)
[2019-11-19] MEDS: DIVALPROEX SODIUM 500 MG TABLET E.C. PO SCH (06:12)
[2019-11-19] MEDS: LACTATED RINGERS SOLUTION 1,000 ML IV SCH (06:12)
[2019-11-19 06:52] VITALS: BP 124/70; PULSE 60; TEMP 98.4
[2019-11-19 08:00] LABS: BASO % 0.1 % (0-2.0); EOS % 0.4 % (0-4.5); HEMATOCRIT 38.3 % (32.4-45.2); HEMOGLOBIN 13.1 GM/dl (10.7-15.3); LYMPH % 12.7 % (8-40); MCH 31.8 pg (25.7-33.7); MCHC 34.1 g/dl (32.0-36.0); MEAN CELL VOLUME 93.1 fl (80-96); MEAN PLT VOLUME 7.8 fl (7.5-11.1); MONO % 4.9 % (3.8-10.2); NEUT % 81.9 % (42.8-82.8); PLATELET COUNT 325 K/MM3 (134-434); RBC 4.11 M/mm3 (3.60-5.2); RDW 12.7 % (11.6-15.6); WHITE BLOOD COUNT 15.3 K/mm3 (4.0-10.8)
[2019-11-19 08:24] LABS: ALBUMIN 3.3 g/dl (3.4-5.0); BILIRUBIN,TOTAL 0.7 mg/dl (0.2-1); CREATININE 0.6 mg/dl (0.55-1.3); MAGNESIUM 1.8 mg/dL (1.8-2.4); POTASSIUM 4.1 mmol/L (3.5-5.1); TOT PROT 6.5 g/dl (6.4-8.2)
[2019-11-19] MEDS: CEFTRIAXONE 2 GM-D5W BAG 2 GM/50 ML BAG IVPB SCH ×2 (09:50→10:19)
--- NOTE | 2019-11-19 11:57 | DS ---
Physical Exam: SUBJECTIVE: Patient seen and examined OBJECTIVE: Vital Signs Period Temp Pulse Resp BP Sys/Montero Pulse Ox Last 24 Hr 98.2 F-98.6 F 59-65 16-18 111-124/60-70 94-97 PHYSICAL EXAM GENERAL: The patient is awake, alert, and fully oriented, in no acute distress. HEAD: Normal with no signs of trauma. EYES: PERRL, extraocular movements intact, sclera anicteric, conjunctiva clear. ENT: Ears normal, nares patent, oropharynx clear without exudates, moist mucous membranes. NECK: Trachea midline, full range of motion, supple. LUNGS: Breath sounds equal, clear to auscultation bilaterally, no wheezes, no crackles, no accessory muscle use. HEART: Regular rate and rhythm, S1, S2 without murmur, rub or gallop. ABDOMEN: Soft, nontender, nondistended, normoactive bowel sounds, no guarding, no rebound, no hepatosplenomegaly, no masses. EXTREMITIES: 2+ pulses, warm, well-perfused, no edema. NEUROLOGICAL: Cranial nerves II through XII grossly intact. Normal speech, gait not observed. PSYCH: Normal mood, normal affect. SKIN: Warm, dry, normal turgor, no rashes or lesions noted. LABS Laboratory Results - last 24 hr 11/19/19 11/19/19 07:33 07:33 WBC 15.3 H RBC 4.11 Hgb 13.1 Hct 38.3 MCV 93.1 MCH 31.8 MCHC 34.1 RDW 12.7 Plt Count 325 MPV 7.8 Absolute Neuts (auto) 12.5 Neutrophils % 81.9 Lymphocytes % 12.7 Monocytes % 4.9 Eosinophils % 0.4 Basophils % 0.1 Sodium 136 Potassium 4.1 Chloride 106 Carbon Dioxide 23 Anion Gap 7 L BUN 17.0 Creatinine 0.6 Est GFR (CKD-EPI)AfAm 123.18 Est GFR (CKD-EPI)NonAf 106.28 Random Glucose 93 Calcium 9.0 Magnesium 1.8 Total Bilirubin 0.7 AST 13 L ALT 9 L Alkaline Phosphatase 35 L Total Protein 6.5 Albumin 3.3 L HOSPITAL COURSE: Date of Admission:11/16/19 Date Signed Out AMA: Pre hospital course 49 year-old female with a PMH significant for breast cancer s/p left mastectomy (remote), seizure disorder (last seizure 1 year ago) bipolar/schizophrenia, and chronic pain. Presented to the ED for evaluation of abdominal pain associated with nausea and one episode of vomiting. Patient suffers from chronic, "full body" pain, but this abdominal pain is distinct, started about 24 hours ago, and waxes and wanes in intensity. Patient states that for some months she has been experiencing nausea after eating. Patient also reports a painful pimple in her inner left thigh. ER course (1) WBC 8.4 (<--13.1), afebrile (2) LFTs normal, lipase normal Subsequent hospital course US imaging was suggestive of acute cholecystitis. HIDA scan showed possible cystic duct obstruction. Although surgery did not feel intervention was indicated, was in process of having patient evaluated by hepatobiliary service at [facility] when patient decided to leave [place]. Patient was given contact information for John Kong, and discharged with a prescription for augmentin. Minutes to complete discharge: 35 Discharge Summary Problems reviewed: Yes Reason For Visit: vomiting,abdominal pain,nausea Current Active Problems Acute cholecystitis (Acute) Condition: Guarded - Instructions Diet, Activity, Other Instructions: You are signing out against medical advice. A prescription has been sent to your pharmacy for augmentin which is an antibiotic. Take this medication as directed and be sure to finish all the medication. You may have a partially obstructed cystic duct. This condition needs to be evaluated further. It is strongly recommended you follow up with Dr. Kong at [facility]. Dr. Benny Kong [facility] [place], [place] [id number] [phone] Disposition: AGAINST MEDICAL ADVICE - Home Medications Comprehensive Discharge Medication List: Ambulatory Orders Quetiapine Fumarate [Seroquel] 300 mg PO HS 05/07/19 Albuterol Sulfate Inhaler - [Ventolin Hfa Inhaler -] 1 - 2 inh PO PRN PRN Divalproex [Depakote -] 1,000 mg PO HS 11/16/19 Divalproex [Depakote -] 500 mg PO AM 11/16/19 Sertraline HCl [Zoloft] 100 mg PO HS 11/16/19 Amoxicillin/Potassium Clav [Augmentin 875-125 Tablet] 1 each PO BID #20 tablet 11/19/19 This patient is new to me today: No Emergency Visit: Yes ED Registration Date: 11/16/19 Care time: The patient presented to the Emergency Department on the above date and was hospitalized for further evaluation of their emergent condition. Critical Care patient: No - Discharge Referral Referred to [facility] No
--- NOTE | 2019-11-22 09:05 | PN ---
Documentation entered by Dorene Singleton SCRIBE, acting as scribe for Dory Plascencia NP. Physical Exam: SUBJECTIVE: Patient seen and examined OBJECTIVE: Vital Signs Period Temp Pulse Resp BP Sys/Montero Pulse Ox Last 24 Hr 97.6 F-98.2 F 57-82 18-19 102-129/50-78 94-98 GENERAL: The patient is awake, alert, and fully oriented, in no acute distress. LUNGS: Breath sounds equal, clear to auscultation bilaterally, no wheezes, no crackles, no accessory muscle use. HEART: Regular rate and rhythm, S1, S2 ABDOMEN: mild diffuse tenderness EXTREMITIES: 2+ pulses, warm, well-perfused, no edema. NEUROLOGICAL: Cranial nerves II through XII grossly intact. Normal speech, gait not observed. SKIN: Warm, dry, normal turgor, no rashes or lesions noted Laboratory Results - last 24 hr 11/17/19 11/17/19 11/17/19 06:50 06:55 07:35 WBC 8.4 RBC 4.02 Hgb 12.4 Hct 37.4 MCV 92.9 MCH 30.7 MCHC 33.0 RDW 13.1 Plt Count 312 MPV 7.7 Absolute Neuts (auto) 4.6 Neutrophils % 55.1 Lymphocytes % 34.1 Monocytes % 9.1 Eosinophils % 1.3 Basophils % 0.4 Sodium Potassium Chloride Carbon Dioxide Anion Gap BUN Creatinine Est GFR (CKD-EPI)AfAm Est GFR (CKD-EPI)NonAf Random Glucose Calcium Magnesium Total Bilirubin AST ALT Alkaline Phosphatase Total Protein Albumin Blood Type A POSITIVE A POSITIVE Antibody Screen Negative 11/17/19 07:35 WBC RBC Hgb Hct MCV MCH MCHC RDW Plt Count MPV Absolute Neuts (auto) Neutrophils % Lymphocytes % Monocytes % Eosinophils % Basophils % Sodium 137 Potassium 3.9 Chloride 108 H Carbon Dioxide 24 Anion Gap 5 L BUN 9.0 Creatinine 0.6 Est GFR (CKD-EPI)AfAm 123.18 Est GFR (CKD-EPI)NonAf 106.28 Random Glucose 82 Calcium 8.8 Magnesium 2.0 Total Bilirubin 0.5 AST 12 L ALT 9 L Alkaline Phosphatase 39 L Total Protein 6.2 L Albumin 3.2 L Blood Type Antibody Screen Active Medications Generic Name Dose Route Start Last Admin Trade Name Freq PRN Reason Stop Dose Admin Acetaminophen 1,000 mg 11/17/19 01:20 11/17/19 02:08 Ofirmev Injection - IVPB 1,000 mg Q6H PRN Administration PAIN LEVEL 6-10 Divalproex Sodium 500 mg 11/17/19 07:00 11/17/19 06:13 Depakote - PO 500 mg AM MARIO Administration Divalproex Sodium 1,000 mg 11/16/19 22:00 11/17/19 21:33 Depakote - PO 1,000 mg HS MARIO Administration Lactated Ringer's 1,000 mls @ 100 mls/hr 11/16/19 22:45 11/17/19 00:40 Lactated Ringers Solution IV 100 mls/hr ASDIR MARIO Administration Ondansetron HCl 4 mg 11/16/19 23:00 11/17/19 11:39 Zofran Injection IVPUSH 4 mg Q6H PRN Administration NAUSEA Quetiapine Fumarate 300 mg 11/16/19 22:00 11/17/19 21:34 Seroquel - PO Not Given HS MARIO Sertraline HCl 100 mg 11/16/19 22:00 11/17/19 21:33 Zoloft - PO 100 mg HS MARIO Administration ASSESSMENT/PLAN: 49 year-old female with a PMH significant for breast cancer s/p left mastectomy (remote), seizure disorder (last seizure 1 year ago) bipolar/schizophrenia, and chronic pain. Admitted for suspected acute cholecystitis. Abdominal pain r/o Acute Cholecystitis --US suggestive of acute cholecystitis --HIDA scan today --afebrile, leukocytosis has resolved Abscess left inner thigh --pus filled lesion, wound culture collected and sent --Vanc x 1 dose --if no indication for IV antibiotics for cholecystitis, start PO meds tomorrow Breast cancer --stable Seizure disorder --stable --continue depakote Bipolar disorder Schizophrenia --continue sertraline, seroquel FEN Fluids: LR @ 100mL/hr Electrolytes: replete as indicated Nutrition: NPO DVT prophylaxis: hold chemical prophylaxis due to possible surgical intervention ; SCDs, oob, ambulation Dispo: continues to require inpatient care. Full code. Visit type - Emergency Visit Emergency Visit: Yes ED Registration Date: 11/16/19 Care time: The patient presented to the Emergency Department on the above date and was hospitalized for further evaluation of their emergent condition. - New Patient This patient is new to me today: No - Critical Care Critical Care patient: No Dory Plascencia, ALEJANDRO: This documentation has been prepared by the Mani wilcox Maria, SCRIBE, under my direction and personally reviewed by me in its entirety. I confirm that the documentation accurately reflects all work, treatment, procedures, and medical decision making performed by me.
== END 2019-11-19 12:03 | disposition left against medical advice (07) | DRG 249 ==
LOC: FER 16:43 → FM/S 22:38
PROVIDERS: ADMIT Internal Medicine; ATTEND Nurse Practitioner Acute Care
DX: A08.4 Viral intestinal infection, unspecified (principal); G40.909 Epilepsy, unspecified, not intractable, without status epilepticus; F31.9 Bipolar disorder, unspecified; F17.210 Nicotine dependence, cigarettes, uncomplicated; F20.9 Schizophrenia, unspecified; G89.29 Other chronic pain; D72.829 Elevated white blood cell count, unspecified; K59.09 Other constipation; L02.416 Cutaneous abscess of left lower limb; Z85.3 Personal history of malignant neoplasm of breast
CPT/HCPCS: 36415; 71045-TC-FY; 74177-TC; 76705-TC; 78226-TC; 80053; 81003; 82550; 83690; 83735; 84484; 85025; 86850; 86900; 86901; 87040; 87070; 87086; 87205; 93005; 99283-25; A9537; J0131; Q0162; Q9967

== ENCOUNTER 2019-12-29 15:37 | Emergency (ER) | payer OTHER ==
--- NOTE | 2019-12-29 15:57 | PDOC ---
Rapid Medical Evaluation Time Seen by Provider: 12/29/19 15:48 Medical Evaluation: Allergies Allergy/AdvReac Type Severity Reaction Status Date / Time haloperidol [From Haldol] Allergy Verified 11/16/19 16:44 trazodone Allergy Verified 11/16/19 16:44 peanut AdvReac Severe Difficulty Verified 11/16/19 16:45 Breathing 12/29/19 15:48 I have performed a brief in-person evaluation of this patient. The patient presents with a chief complaint of: R thigh pain Pertinent physical exam findings: n/a I have ordered the following: nothing The patient will proceed to the ED for further evaluation.
[2019-12-29 15:58] VITALS: TEMP 98; BMI 21.7
--- NOTE | 2019-12-29 17:33 | PDOC ---
History of Present Illness <Delicia Alanis - Last Filed: 12/29/19 18:44> - General History Source: Patient Exam Limitations: No Limitations <DanielDian [email or web address] - Last Filed: 12/30/19 01:22> - General Chief Complaint: Pain Stated Complaint: PAIN Time Seen by Provider: 12/29/19 15:48 Past History <Delicia Alanis - Last Filed: 12/29/19 18:44> - Travel Traveled outside of the country in the last 30 days: No Close contact w/someone who was outside of country & ill: No - Past Medical History Asthma: Yes Cancer: Yes (lt breast) COPD: No Psychiatric Problems: Yes (bipolar depression anxiety) - Immunization History Td Vaccination: Yes TDAP Vaccination: Yes Immunization Up to Date: Yes - Psycho Social/Smoking Cessation Hx Smoking History: Current every day smoker Have you smoked in the past 12 months: Yes Number of Cigarettes Smoked Daily: 15 Information on smoking cessation initiated: No 'Breaking Loose' booklet given: 11/16/19 Hx Alcohol Use: No Drug/Substance Use Hx: Yes (Marijuanna) Substance Use Type: Marijuana Hx Substance Use Treatment: No <Sarahy Reyes - Last Filed: 12/30/19 01:22> - Past Medical History Allergies/Adverse Reactions: Allergies Allergy/AdvReac Type Severity Reaction Status Date / Time haloperidol [From Haldol] Allergy Verified 11/16/19 16:44 trazodone Allergy Verified 11/16/19 16:44 peanut AdvReac Severe Difficulty Verified 11/16/19 16:45 Breathing Home Medications: Ambulatory Orders Quetiapine Fumarate [Seroquel] 300 mg PO HS 05/07/19 Albuterol Sulfate Inhaler - [Ventolin Hfa Inhaler -] 1 - 2 inh PO PRN PRN Divalproex [Depakote -] 1,000 mg PO HS 11/16/19 Divalproex [Depakote -] 500 mg PO AM 11/16/19 Sertraline HCl [Zoloft] 100 mg PO HS 11/16/19 Amoxicillin/Potassium Clav [Augmentin 875-125 Tablet] 1 each PO BID #20 tablet 11/19/19 Cyclobenzaprine HCl [Flexeril -] 10 mg PO HS #10 tablet 12/30/19 Methylprednisolone [Medrol Dose Vitaliy] 4 mg PO ASDIR #21 tablet 12/30/19 Review of Systems - Review of Systems Able to Perform ROS?: Yes Comments:: 12/29/19 17:37 CONSTITUTIONAL: Absent: fever, chills, diaphoresis, generalized weakness, malaise, loss of appetite HEENT: Absent: rhinorrhea, nasal congestion, throat pain, throat swelling, difficulty swallowing, mouth swelling, ear pain, eye pain, visual Changes CARDIOVASCULAR: Absent: chest pain, loss of consciousness, palpitations, irregular heart rate, peripheral edema RESPIRATORY: Absent: cough, shortness of breath, dyspnea with exertion, orthopnea, wheezing, stridor, hemoptysis GASTROINTESTINAL: Present: Abdominal pain, nausea, vomiting absent: abdominal pain, abdominal distension, nausea, vomiting, diarrhea, constipation, melena, hematochezia GENITOURINARY: Absent: dysuria, frequency, urgency, hesitancy, hematuria, flank pain, genital pain MUSCULOSKELETAL: Present: Right leg pain absent: myalgia, arthralgia, joint swelling SKIN: Absent: rash, itching, pallor HEMATOLOGIC/IMMUNOLOGIC: Absent: easy bleeding, easy bruising, lymphadenopathy, frequent infections ENDOCRINE: Absent: unexplained weight gain, unexplained weight loss, heat intolerance, cold intolerance NEUROLOGIC: Absent: headache, focal weakness or paresthesias, dizziness, unsteady gait, seizure, mental status changes, bladder or bowel incontinence PSYCHIATRIC: Absent: anxiety, depression, suicidal or homicidal ideation, hallucinations. Is the patient limited Faroese proficient: No <Sarahy Reyes - Last Filed: 12/30/19 01:22> *Physical Exam - Vital Signs Last Vital Signs Temp Pulse Resp BP Pulse Ox 98 F 100 H 20 116/88 98 12/29/19 15:45 12/29/19 15:45 12/29/19 15:45 12/29/19 15:45 12/29/19 15:45 <Delicia Alanis - Last Filed: 12/29/19 18:44> - Vital Signs Last Vital Signs Temp Pulse Resp BP Pulse Ox 98 F 100 H 20 116/88 98 12/29/19 15:45 12/29/19 15:45 12/29/19 15:45 12/29/19 15:45 02/19/20 15:45 - Physical Exam 12/29/19 17:38 GENERAL: Well developed, well nourished. Awake and alert. No acute distress. HEENT: Normocephalic, atraumatic. PERRLA, EOMI. No conjunctival pallor. Sclera are non- icteric. Moist mucous membranes. Oropharynx is clear. NECK: Supple. Full ROM. No JVD. Carotid pulses 2+ and symmetric, without bruits. No thyromegaly. No lymphadenopathy. CARDIOVASCULAR: Regular rate and rhythm. No murmurs, rubs, or gallops. Distal pulses are 2+ and symmetric. PULMONARY: No evidence of respiratory distress. Lungs clear to auscultation bilaterally. No wheezing, rales or rhonchi. ABDOMINAL: Tenderness palpation of the right upper quadrant. (-) Ott sign. Soft. Non- distended. No rebound or guarding. No organomegaly. Normoactive bowel sounds. MUSCULOSKELETAL Tenderness palpation of the right lower back L3-L5 with radiation down the right leg. Positive straight leg raise test. No midline tenderness. Normal range of motion at all joints. No bony deformities or tenderness. No CVA tenderness. EXTREMITIES: No cyanosis. No clubbing. No edema. No calf tenderness. SKIN: Warm and dry. Normal capillary refill. No rashes. No jaundice. NEUROLOGICAL: Alert, awake, appropriate. Cranial nerves 2-12 intact. No deficits to light touch and temperature in face, upper extremities and lower extremities. No motor deficits in the in face, upper extremities and lower extremities. Normoreflexic in the upper and lower extremities. Normal speech. Toes are down- going bilaterally. Gait is normal without ataxia. PSYCHIATRIC: Cooperative. Good eye contact. Appropriate mood and affect. <Sarahy Reyes - Last Filed: 12/30/19 01:22> ED Treatment Course - ADDITIONAL ORDERS Additional order review: Laboratory Results 12/29/19 12/29/19 17:49 17:49 Urine Color Yellow Urine Appearance Turbid Urine pH 8.0 D Ur Specific Goodman 1.020 Urine Protein Negative Urine Glucose (UA) Negative Urine Ketones Negative Urine Blood Negative Urine Nitrite Negative Urine Bilirubin Negative Urine Urobilinogen 1.0 Ur Leukocyte Esterase Negative Urine HCG, Qual Negative <Delicia Alanis - Last Filed: 12/29/19 18:44> - LABORATORY CBC & Chemistry Diagram: 12/29/19 18:50 12/29/19 18:50 <Sarahy Reyes - Last Filed: 12/30/19 01:22> Medical Decision Making - Medical Decision Making The patient was seen and evaluated in conjunction with midlevel provider under my direct supervision, ancillary studies were reviewed. I agree with the plan as outlined SCOUT Reyes. HPI, workup/dispo as outlined. VS reviewed, wnl. 12/29/19 18:44 <AnnabelleDelicia Tanika - Last Filed: 12/29/19 18:44> - Medical Decision Making 12/29/19 17:39 The patient is a 49-year-old female with past medical history of breast cancer, in remission, bipolar disorder, depression, anxiety, asthma, presents to the ER today for multiple complaints. She states that her symptoms have been going on for approximately 1 month. She notes that she has pain in her right buttock that goes down her right leg. She states that her leg feels numb. She also states that she has abdominal pain, nausea vomiting and diarrhea since her last discharge from the hospital on 11/18/2019. She states her symptoms of gotten worse and she now has pain radiating up to the right shoulder. She states that she has lost weight. Denies fall, trauma, saddle anesthesia, bladder bowel incontinence, fever, cough, chest pain, shortness of breath and urinary symptoms. A/P: Pain Exam notable for right upper quadrant pain, tenderness palpation of the right lower back L3-L5 with radiation to the right leg consistent with sciatica. Patient is tearful on exam. We will order a broad work-up given her many complaints. Patient did have a HIDA scan back on 11/18/2019 which showed poor filling, need to rule out gallbladder pathology as well at this time. Reevaluate 12/29/19 22:25 Pt still complaining of pain Lumbar spine x-ray unremarkable Abdomen US shows resolution of the findings from 11/16/19 Pt now complaining of R arm numbness and weakness. [employer] strength intact. Head CT and EKG added Morphine for pain 12/30/19 00:46 Pain has resolved Pending CT read EKG: NSR rate 61 BPM, normal intevals and axis, no acute ST-T wave changes. <Sarahy Reyes - Last Filed: 12/30/19 01:22> Discharge <Delicia Alanis - Last Filed: 12/29/19 18:44> - Discharge Information Problems reviewed: Yes - Admission No <Sarahy Reyes - Last Filed: 12/30/19 01:22> - Discharge Information Clinical Impression/Diagnosis: Abdominal pain Qualifiers: Abdominal location: generalized Qualified Code(s): R10.84 - Generalized abdominal pain Sciatica Qualifiers: Laterality: right Qualified Code(s): M54.31 - Sciatica, right side Condition: Stable Disposition: HOME - Follow up/Referral Referrals: Mundo Joel MD [Staff Physician] - - Patient Discharge Instructions Patient Printed Discharge Instructions: DI for Sciatica, DI for Abdominal Pain- Adult Additional Instructions: You were evaluated today for your leg pain and abdominal pain. Your ultrasound was normal. It did not show any evidence of a gallbladder infection at this time. Your head CT was also normal today. Your pain in your leg is most likely due to sciatica. Please take the steroids and muscle relaxers as directed to help with your symptoms. Do not drink or drive after taking these medications as they may make you drowsy. Please follow-up with surgery in regards to your abdominal pain. A referral has been given to you. Follow-up within the week. Return to the ER for worsening pain, vomiting, numbness and tingling in the groin, loss of bladder or bowel function, or if you have any changes in your symptoms.
[2019-12-29] MEDS ORDERED: ACETAMINOPHEN 1000 MG/100 ML VIAL (NON FORMULARY) IVPB ONE (17:34)
[2019-12-29] MEDS ORDERED: ONDANSETRON 4 MG/2 ML VIAL IVPUSH ONE (17:34)
[2019-12-29] MEDS ORDERED: SODIUM CHLORIDE 1,000 ML IV STA (17:34)
[2019-12-29 18:29] LABS: URINE APPEARANCE TURBID; URINE BILIRUBIN NEGATIVE (NEGATIVE); URINE COLOR YELLOW; URINE GLUCOSE (UA) NEGATIVE (NEGATIVE); URINE KETONE NEGATIVE (NEGATIVE); URINE LEUK ESTERASE NEGATIVE (NEGATIVE); URINE NITRITE NEGATIVE (NEGATIVE); URINE PROTEIN NEGATIVE (NEGATIVE)
[2019-12-29 19:26] LABS: BASO % 0.8 % (0-2.0); EOS % 0.7 % (0-4.5); HEMATOCRIT 41.7 % (32.4-45.2); LYMPH % 30.6 % (8-40); MCH 31.3 pg (25.7-33.7); MCHC 33.6 g/dl (32.0-36.0); MEAN CELL VOLUME 93.3 fl (80-96); MEAN PLT VOLUME 8.4 fl (7.5-11.1); MONO % 10.7 % (3.8-10.2); NEUT % 57.2 % (42.8-82.8); PLATELET COUNT 332 K/MM3 (134-434); RBC 4.48 M/mm3 (3.60-5.2); RDW 14.3 % (11.6-15.6); WHITE BLOOD COUNT 11.4 K/mm3 (4.0-10.0)
[2019-12-29] MEDS ORDERED: ONDANSETRON 4 MG/2 ML VIAL ONE (19:27)
[2019-12-29] MEDS ORDERED: ACETAMINOPHEN INJECTION 100 ML IVPB ONE (19:27)
[2019-12-29 19:39] LABS: INR 0.97 (0.83-1.09); PROTHROMBIN TIME (PATIENT) 11.5 SEC (9.7-13.0)
[2019-12-29 19:54] LABS: ALBUMIN 4.1 g/dl (3.4-5.0); BILIRUBIN,TOTAL 0.3 mg/dL (0.2-1); BLOOD UREA NITROGEN 15.6 mg/dL (7-18); CREATININE 0.6 mg/dL (0.55-1.3); POTASSIUM 4.4 mmol/L (3.5-5.1); TOT PROT 7.9 g/dl (6.4-8.2)
[2019-12-29] MEDS ORDERED: morphine CARPU-JECT 4 MG/1 ML DISP.SYRIN IVPUSH ONE (21:40)
[2019-12-29] MEDS ORDERED: morphine SULFATE 4 MG/ML VIAL ONE (22:46)
[2019-12-29] MEDS ORDERED: methylPREDNISolone NA SUCC 125 MG/2 ML VIAL ONE (23:09)
[2019-12-29 23:18] VITALS: BP 117/61; PULSE 68
--- NOTE | 2019-12-30 14:14 | EKG ---
Test Reason : Blood Pressure : / mmHG Vent. Rate : 061 BPM Atrial Rate : 061 BPM P-R Int : 140 ms QRS Dur : 082 ms QT Int : 414 ms P-R-T Axes : 059 060 050 degrees QTc Int : 416 ms NORMAL SINUS RHYTHM NORMAL ECG WHEN COMPARED WITH ECG OF 16-NOV-2019 17:32, NO SIGNIFICANT CHANGE WAS FOUND Confirmed by BK MEANS MD ([id number]) on 12/30/2019 2:14:19 PM Referred By: Confirmed By:BK MEANS MD
== END 2019-12-30 02:28 | disposition home or self-care (01) ==
LOC: JER 15:37
PROC: 3E033NZ Introduction of Analgesics, Hypnotics, Sedatives into Peripheral Vein, Percutaneous Approach (ICD-10-PCS; principal; 2019-12-29)
PROC: 3E033GC Introduction of Other Therapeutic Substance into Peripheral Vein, Percutaneous Approach (ICD-10-PCS; 2019-12-29)
DX: R10.84 Generalized abdominal pain (principal); Z88.8 Allergy status to other drugs, medicaments and biological substances; Z91.010 Allergy to peanuts; M54.31 Sciatica, right side
CPT/HCPCS: 36415; 70450-TC; 72100-TC-FY; 76705-TC; 80053; 81003; 83690; 84703; 85025; 85610; 87086; 93005; 93010; 99285-25; J0131; J7030

== ENCOUNTER 2020-05-06 02:32 | Emergency (ER) | payer OTHER ==
[2020-05-06 02:43] VITALS: BP 172/98; PULSE 94; TEMP 97.5; BMI 23.6
[2020-05-06] MEDS ORDERED: BUPIVACAINE HCL/PF 0.5% (5 MG/ML) 30 ML VIAL IJ ONE (03:10)
[2020-05-06] MEDS ORDERED: LIDOCAINE HCL 1%, 10 MG/ML (20ML VIAL) ONE (03:13)
[2020-05-06] MEDS ORDERED: LIDOCAINE HCL 1%, 10 MG/ML (50 mL VIAL) SQ ONE (03:14)
== END 2020-05-06 04:45 | disposition home or self-care (01) ==
LOC: JER 02:32
PROC: 3E023GC Introduction of Other Therapeutic Substance into Muscle, Percutaneous Approach (ICD-10-PCS; principal; 2020-05-06)
DX: K08.89 Other specified disorders of teeth and supporting structures (principal)
CPT/HCPCS: 99283-25

== ENCOUNTER 2020-10-29 13:48 | Emergency (ER) | payer OTHER ==
[2020-10-29 13:55] VITALS: BMI 21.3
[2020-10-29] MEDS ORDERED: QUEtiapine FUMARATE 300 MG TABLET PO ONE (15:03)
[2020-10-29] MEDS ORDERED: QUEtiapine FUMARATE 100 MG TABLET (FP) ONE (15:12)
[2020-10-29 16:59] LABS: BASO % 0.6 % (0-2.0); EOS % 1.1 % (0-4.5); HEMATOCRIT 39.4 % (32.4-45.2); HEMOGLOBIN 13.1 GM/dL (10.7-15.3); LYMPH % 28.3 % (8-40); MCHC 33.3 g/dl (32.0-36.0); MEAN PLT VOLUME 7.3 fl (7.5-11.1); MONO % 8.9 % (3.8-10.2); NEUT % 61.1 % (42.8-82.8); PLATELET COUNT 335 K/MM3 (134-434); RBC 4.24 M/mm3 (3.60-5.2); RDW 14.6 % (11.6-15.6); WHITE BLOOD COUNT 10.2 K/mm3 (4.0-10.0)
[2020-10-29] MEDS ORDERED: LORazepam 2 MG/ML SDV VIAL ONE ×2 (16:59→17:54)
[2020-10-29 17:00] LABS: URINE APPEARANCE TURBID; URINE BILIRUBIN NEGATIVE (NEGATIVE); URINE COLOR YELLOW; URINE GLUCOSE (UA) NEGATIVE (NEGATIVE); URINE KETONE NEGATIVE (NEGATIVE); URINE LEUK ESTERASE NEGATIVE (NEGATIVE); URINE NITRITE NEGATIVE (NEGATIVE); URINE PROTEIN NEGATIVE (NEGATIVE)
[2020-10-29 17:06] LABS: HCG,QUALITATIVE URINE Negative
[2020-10-29 17:12] LABS: COCAINE, UR NEGATIVE ng/ml (CUTOFF=300); METHADONE, UR NEGATIVE ng/ml (CUTOFF=300); OPIATES, URI NEGATIVE ng/ml (CUTOFF=300); PHENCYCLIDINE,URINE NEGATIVE ng/ml (CUTOFF=25); URINE AMPHETAMINES NEGATIVE ng/ml (CUTOFF=500); URINE BARBITURATES NEGATIVE ng/ml (CUTOFF=200); URINE BENZODIAZEPINES NEGATIVE ng/ml (CUTOFF=200)
[2020-10-29 17:23] LABS: CHLORIDE 106 mmol/L (98-107); POTASSIUM 3.6 mmol/L (3.5-5.1); SODIUM 140 mmol/L (136-145)
[2020-10-29 17:25] LABS: CALCIUM 9.7 mg/dL (8.5-10.1)
[2020-10-29 17:26] LABS: ALBUMIN 3.7 g/dl (3.4-5.0); ANION GAP 6 MMOL/L (8-16); BLOOD UREA NITROGEN 9.7 mg/dL (7-18); CO2 28 mmol/L (21-32); GLUCOSE,RANDOM 117 mg/dL (74-106)
[2020-10-29 17:29] LABS: CREATININE 0.7 mg/dL (0.55-1.3); SGOT/AST 15 U/L (15-37); SGPT/ALT 14 U/L (13-61)
[2020-10-29 17:31] LABS: BILIRUBIN,TOTAL 0.4 mg/dL (0.2-1); TOT PROT 7.4 g/dl (6.4-8.2)
[2020-10-29 17:32] LABS: ALK PHOS 60 U/L (45-117)
[2020-10-29] MEDS ORDERED: HALOPERIDOL LACTATE 5 MG/ML IM ONE (17:50)
[2020-10-29] MEDS ORDERED: HALOPERIDOL LACTATE 5 MG/ML ONE (17:53)
[2020-10-30 02:00] VITALS: TEMP 98.6
[2020-10-30] MEDS ORDERED: LORazepam 2 MG/ML SDV VIAL ONE (04:06)
[2020-10-30] MEDS ORDERED: LORazepam 0.5 MG TABLET ONE (05:29)
[2020-10-30] MEDS ORDERED: LORazepam 1 MG TABLET PO ONE (05:30)
[2020-10-30 11:51] VITALS: BP 144/90; PULSE 112
== END 2020-10-30 11:51 | disposition home or self-care (01) ==
LOC: JER 13:48
PROC: 3E023GC Introduction of Other Therapeutic Substance into Muscle, Percutaneous Approach (ICD-10-PCS; principal; 2020-10-29)
PROC: 3E023GC Introduction of Other Therapeutic Substance into Muscle, Percutaneous Approach (ICD-10-PCS; 2020-10-29)
PROC: 3E023NZ Introduction of Analgesics, Hypnotics, Sedatives into Muscle, Percutaneous Approach (ICD-10-PCS; 2020-10-29)
PROC: 3E023GC Introduction of Other Therapeutic Substance into Muscle, Percutaneous Approach (ICD-10-PCS; 2020-10-29)
PROC: 3E023GC Introduction of Other Therapeutic Substance into Muscle, Percutaneous Approach (ICD-10-PCS; 2020-10-29)
DX: F31.30 Bipolar disorder, current episode depressed, mild or moderate severity, unspecified (principal); F20.0 Paranoid schizophrenia
CPT/HCPCS: 36415; 80053; 80307; 81003; 84703; 85025; 93005; 93010; 99284-25; C9803; U0003

== ENCOUNTER 2022-03-07 08:24 | Emergency (ER) | payer OTHER ==
[2022-03-07 08:32] VITALS: BMI 26.4
[2022-03-07 10:25] LABS: BASO % 0.5 % (0-2.0); EOS % 1.5 % (0-4.5); HEMATOCRIT 41.4 % (32.4-45.2); HEMOGLOBIN 13.8 GM/dL (10.7-15.3); LYMPH % 26.1 % (8-40); MCH 31.5 pg (25.7-33.7); MCHC 33.5 g/dl (32.0-36.0); MEAN CELL VOLUME 94.2 fl (80-96); MEAN PLT VOLUME 7.6 fl (7.5-11.1); MONO % 9.6 % (3.8-10.2); NEUT % 62.3 % (42.8-82.8); PLATELET COUNT 257 10^3/uL (134-434); RBC 4.39 M/mm3 (3.60-5.2); RDW 15.3 % (11.6-15.6); WHITE BLOOD COUNT 8.2 K/mm3 (4.0-10.0)
[2022-03-07] MEDS ORDERED: ONDANSETRON 4 MG/2 ML VIAL IVPUSH ONE (10:33)
[2022-03-07] MEDS ORDERED: ONDANSETRON 4 MG/2 ML VIAL ONE (10:34)
[2022-03-07 10:35] LABS: BLOOD UREA NITROGEN 15.5 mg/dL (7-18); CALCIUM 9.4 mg/dL (8.5-10.1)
[2022-03-07 10:37] LABS: ALBUMIN 3.7 g/dl (3.4-5.0)
[2022-03-07 10:38] LABS: CREATININE 0.6 mg/dL (0.55-1.3)
[2022-03-07 10:41] LABS: BILIRUBIN,TOTAL 0.3 mg/dL (0.2-1); TOT PROT 7.5 g/dl (6.4-8.2)
[2022-03-07] MEDS ORDERED: SODIUM CHLORIDE 0.9% 500 ML INFUS.BAG IV ONE (10:52)
[2022-03-08 09:32] VITALS: BP 117/65; PULSE 75; TEMP 97.8
== END 2022-03-07 16:45 | disposition home or self-care (01) ==
LOC: JER 08:24
PROC: 3E033GC Introduction of Other Therapeutic Substance into Peripheral Vein, Percutaneous Approach (ICD-10-PCS; principal; 2022-03-07)
DX: R10.84 Generalized abdominal pain (principal)
CPT/HCPCS: 36415; 71045-TC-FY; 74177-TC; 80053; 83690; 85025; 93005; 93010; 99285-25; Q9967